=== PATIENT | female | born 1955 | race Caucasian/White ===

== ENCOUNTER → 2017-12-22 | Outpatient (CLI) | payer OTHER ==
[~2017-12-22] MED LIST: FLEXERIL PO; LANTUS; METFORMIN HCL500 MG; PERCOCET 7.5-31 EACH PO; SERTRALINE HCL50 MG; [UNRECOGNIZED DRUG - OTHER]
== END ==
LOC: M.RAD 12-16 09:56
DX: Z12.31 Encounter for screening mammogram for malignant neoplasm of breast (principal); E04.1 Nontoxic single thyroid nodule; E03.8 Other specified hypothyroidism

== ENCOUNTER → 2020-09-11 | Outpatient (CLI) | payer OTHER | LOC: M.CT 08:42 | PROVIDERS: ATTEND Family Medicine | DX: Z12.31 Encounter for screening mammogram for malignant neoplasm of breast (principal); E03.9 Hypothyroidism, unspecified; E04.1 Nontoxic single thyroid nodule; R44.0 Auditory hallucinations; R44.3 Hallucinations, unspecified; R41.82 Altered mental status, unspecified ==